=== PATIENT | female | born 1955 | race African-American/Black ===

== ENCOUNTER 2017-02-17 14:17 | Inpatient (IN) | payer OTHER ==
[2017-02-17 15:18] VITALS: BMI 23.4
--- NOTE | 2017-02-17 15:59 | HP ---
CIWA Score - CIWA Score Nausea/Vomitin Muscle Tremors: 3 Anxiety: 3 Agitation: 2 Paroxysmal Sweats: 2 Orientation: 0-Oriented Tacttile Disturbances: 2-Mild Itch/Numbness/Burn Auditory Disturbances: 0-None Visual Disturbances: 0-None Headache: 3-Moderate CIWA-Ar Total Score: 17 Admission ROS BHS - HPI Chief Complaint: I need detox from alcohol Allergies/Adverse Reactions: Allergies Allergy/AdvReac Type Severity Reaction Status Date / Time No Known Allergies Allergy Verified 02/17/17 15:55 History of Present Illness: 61 y/o woman with alcohol dependence presents for detox. Her last treatment was in 1991. Exam Limitations: No Limitations - Ebola screening Have you traveled outside of the country in the last 21 days: No Have you had contact with anyone from an Ebola affected area: No Have you been sick,other than usual withdrawal symptoms: No Do you have a fever: No - Review of Systems Constitutional: Chills, Loss of Appetite, Changes in sleep EENT: reports: Blurred Vision Respiratory: reports: No Symptoms reported GI: reports: Poor Appetite, Abdominal cramping : reports: No Symptoms Reported Musculoskeletal: reports: Muscle Pain, Muscle Weakness Integumentary: reports: No Symptoms Reported Neuro: reports: Headache, Tremors Endocrine: reports: No Symptoms Reported Hematology: reports: No Symptoms Reported Psychiatric: reports: Anxious Other Systems: Reviewed and Negative Patient History - Patient Medical History Hx Anemia: No Hx Asthma: No Hx Chronic Obstructive Pulmonary Disease (COPD): No Hx Cancer: No Hx Cardiac Disorders: No Hx Congestive Heart Failure: No Hx Hypertension: No Hx Hypercholesterolemia: No Hx Pacemaker: No HX Cerebrovascular Accident: No Hx Seizures: No Hx Dementia: No Hx Diabetes: No Hx Gastrointestinal Disorders: No Hx Liver Disease: No Hx Genitourinary Disorders: No Hx Sexually Transmitted Disorders: No Hx Renal Disease (ESRD): No Hx Thyroid Disease: No Hx Human Immunodeficiency Virus (HIV): No Hx Hepatitis C: No Hx Depression: No Hx Suicide Attempt: No Hx Bipolar Disorder: No Hx Schizophrenia: No - Patient Surgical History Past Surgical History: Yes Hx Neurologic Surgery: No Hx Cataract Extraction: No Hx Cardiac Surgery: No Hx Lung Surgery: No Hx Breast Biopsy: No Hx Abdominal Surgery: No Hx Appendectomy: No Hx Genitourinary Surgery: No Hx Section: No Hx Orthopedic Surgery: No Hx Hysterectomy: No Other Surgical History: Removal of polyp in 2015 Anesthesia Reaction: No - PPD History Previous Implant?: Yes Documented Results: Positive w/o proof Implanted On Prior [facility] Admission?: No PPD to be Administered?: No - Reproductive History Patient is a Female of Child Bearing Age (11 -55 yrs old): Yes LMP comment: NA - Smoking Cessation Smoking history: Former smoker Have you smoked in the past 12 months: No Hx Chewing Tobacco Use: No Initiated information on smoking cessation: No - Substance & Tx. History Hx Alcohol Use: Yes Hx Substance Use: Yes Substance Use Type: Alcohol, Cocaine, Marijuana Hx Substance Use Treatment: Yes - Substances Abused Alcohol Route: Oral Frequency: Daily Amount used: vodka-1 pint 40oz beer Age of first use: 14 Date of Last Use: 02/17/17 Cocaine Route: Inhalation Frequency: 3-6 times per week Amount used: $50 Age of first use: 20 Date of Last Use: 02/17/17 Marijuana/Hashish Route: Smoking Frequency: Daily Amount used: 2 bags Age of first use: 17 Date of Last Use: 02/17/17 Family Disease History - Family Disease History Family Disease History: CA: Mother (lung) Admission Physical Exam BHS - Vital Signs Vital Signs: Vital Signs - 24 hr 02/17/17 15:16 Temperature 96.7 F L Pulse Rate 72 Respiratory 20 Rate Blood Pressure 131/81 - Physical General Appearance: Yes: No Apparent Distress, Appropriately Dressed HEENTM: Yes: Hearing grossly Normal, Normal ENT Inspection, Normocephalic, Pharynx Normal, Tm's normal Respiratory: Yes: Chest Non-Tender, Lungs Clear, Normal Breath Sounds, No Respiratory Distress, No Accessory Muscle Use Breast: Yes: Breast Exam Deferred Cardiology: Yes: Regular Rhythm, Regular Rate Abdominal: Yes: Normal Bowel Sounds, Non Tender, Soft Back: Yes: Normal Inspection Musculoskeletal: Yes: full range of Motion, Gait Steady Extremities: Yes: Normal Capillary Refill, Normal Inspection, Normal Range of Motion, Non-Tender Neurological: Yes: wildlife removal specialist II-XII NML intact, Fully Oriented, Alert, Normal Mood/ Affect, Normal Response Integumentary: Yes: Normal Color, Warm Lymphatic: Yes: Within Normal Limits - Diagnostic (1) Alcohol dependence with uncomplicated withdrawal Current Visit: Yes Status: Acute (2) Cocaine abuse Current Visit: Yes Status: Acute (3) Marijuana dependence Current Visit: Yes Status: Acute Cleared for Admission [facility] - Detox or Rehab [facility] Level of Care: Medically Managed Detox Regimen/Protocol: Librium [facility] Breath Alcohol Content Breath Alcohol Content: 0 Urine Pregancy Test - Result Urine Test Results: Negative- NO Line Present Urine Drug Screen - Results Drug Screen Negative: No Urine Drug Screen Results: THC-Marijuana, DUTCH-Cocaine
[2017-02-17] MEDS ORDERED: guaiFENesin/D-METHORPHAN HB 10 ML UNIT-DOSE CUPS PO PRN (16:10)
[2017-02-17] MEDS ORDERED: ACETAMINOPHEN 325 MG TABLET (FP) PO PRN (16:10)
[2017-02-17] MEDS ORDERED: MENTHOL/PHENOL 1 EACH UD MM PRN (16:10)
[2017-02-17] MEDS ORDERED: LOPERAMIDE HCL 2 MG CAPSULE PO PRN (16:10)
[2017-02-17] MEDS ORDERED: P-EPHED 60MG/TRIPROLIDI 2.5MG TABLET PO PRN (16:10)
[2017-02-17] MEDS ORDERED: chlordiazePOXIDE HCL 25 MG CAPSULE PO PRN (16:10)
[2017-02-17] MEDS ORDERED: diphenhydrAMINE HCL 50 MG CAPSULE PO PRN (16:10)
[2017-02-17] MEDS ORDERED: IBUPROFEN 400 MG TABLET (FP) PO PRN (16:10)
[2017-02-17] MEDS ORDERED: hydrOXYzine PAMOATE 50 MG CAPSULE (FP) PO PRN (16:10)
[2017-02-17] MEDS ORDERED: chlordiazePOXIDE HCL 25 MG CAPSULE PO ONE (16:10)
[2017-02-17] MEDS ORDERED: MAGNESIUM CITRATE 300 ML BOTTLE PO PRN (16:10)
[2017-02-17] MEDS ORDERED: MAG HYDROX/AL HYDROX/SIMETH 30 ML UNIT-DOSE CUP PO PRN (16:10)
[2017-02-17] MEDS ORDERED: MAGNESIUM HYDROX 2400MG/30ML ORAL SUSPENSION 30 ML CUP PO PRN (16:10)
[2017-02-17] MEDS: chlordiazePOXIDE HCL 25 MG CAPSULE PO SCH ×2 (18:41→22:42)
[2017-02-17] MEDS: THIAMINE HCL 100 MG TABLET (FP) PO SCH (22:42)
[2017-02-18 00:27] LABS: URINE APPEARANCE CLEAR; URINE BILIRUBIN NEGATIVE (NEGATIVE); URINE BLOOD 2+ (NEGATIVE); URINE COLOR YELLOW; URINE GLUCOSE (UA) NEGATIVE (NEGATIVE); URINE KETONE NEGATIVE (NEGATIVE); URINE LEUK ESTERASE NEGATIVE (NEGATIVE); URINE NITRITE NEGATIVE (NEGATIVE); URINE PROTEIN NEGATIVE (NEGATIVE)
[2017-02-18 00:40] LABS: URINE BACTERIA RARE /hpf (NONE SEEN); URINE MUCUS RARE; URINE RBC 43 /hpf (0-3); URINE WBC 3 /hpf (3-5)
[2017-02-18] MEDS: chlordiazePOXIDE HCL 25 MG CAPSULE PO SCH ×4 (06:16→22:23)
[2017-02-18 09:53] LABS: MCH 32.5 pg (25.7-33.7); MCHC 33.2 g/dl (32.0-36.0); MEAN PLT VOLUME 9.9 fl (7.5-11.1); PLATELET COUNT 185 K/MM3 (134-434); RDW 12.8 % (11.6-15.6); WHITE BLOOD COUNT 5.8 K/mm3 (4.0-10.0)
--- NOTE | 2017-02-18 09:55 | EKG ---
Test Reason : Blood Pressure : / mmHG Vent. Rate : 057 BPM Atrial Rate : 057 BPM P-R Int : 180 ms QRS Dur : 068 ms QT Int : 430 ms P-R-T Axes : 062 -09 037 degrees QTc Int : 418 ms SINUS BRADYCARDIA POSSIBLE INFERIOR INFARCT , AGE UNDETERMINED ABNORMAL ECG NO PREVIOUS ECGS AVAILABLE Confirmed by MD DONAL, AYAZ ([id number]) on 02/18/2017 9:54:44 AM Referred By: Confirmed By:AYAZ MANSFIELD MD
[2017-02-18 10:23] LABS: ALBUMIN 3.8 g/dl (3.4-5.0); ALK PHOS 86 U/L (45-117); ANION GAP 6 (8-16); BILIRUBIN,TOTAL 0.5 mg/dL (0.2-1.0); CALCIUM 9.1 mg/dL (8.5-10.1); CO2 30 mmol/L (21-32); CREATININE 0.8 mg/dL (0.55-1.02); GLUCOSE,RANDOM 76 mg/dL (74-106); SGOT/AST 15 U/L (15-37); SGPT/ALT 19 U/L (12-78); TOT PROT 7.8 g/dl (6.4-8.2)
[2017-02-18] MEDS: PRENATAL VITAMINS W/ FOLIC ACID TABLET (FP) PO SCH (10:24)
--- NOTE | 2017-02-18 18:29 | PN ---
[facility] CIWA - CIWA Score Nausea/Vomitin-No Nausea/No Vomiting Muscle Tremors: 3 Anxiety: 4-Mod. Anxious/Guarded Agitation: 3 Paroxysmal Sweats: 3 Orientation: 0-Oriented Tacttile Disturbances: 0-None Auditory Disturbances: 0-None Visual Disturbances: 0-None Headache: 0-None Present CIWA-Ar Total Score: 13 S Progress Note (SOAP) Subjective: Sweating,anxiety,tremors,interrupted sleep,restless. Objective: 02/18/17 18:28 Vital Signs - 8 hr 02/18/17 02/18/17 14:33 17:34 Temperature 98.2 F 98.1 F Pulse Rate 78 79 Respiratory 18 16 Rate Blood Pressure 113/73 108/56 Laboratory Last Values WBC 5.8 K/mm3 (4.0-10.0) 02/18/17 07:50 RBC 4.54 M/mm3 (3.60-5.2) 02/18/17 07:50 Hgb 14.8 GM/dL (10.7-15.3) 02/18/17 07:50 Hct 44.5 % (32.4-45.2) 02/18/17 07:50 MCV 98.0 fl (80-96) H 02/18/17 07:50 MCH 32.5 pg (25.7-33.7) 02/18/17 07:50 MCHC 33.2 g/dl (32.0-36.0) 02/18/17 07:50 RDW 12.8 % (11.6-15.6) 02/18/17 07:50 Plt Count 185 K/MM3 (134-434) 02/18/17 07:50 MPV 9.9 fl (7.5-11.1) 02/18/17 07:50 Sodium 140 mmol/L (136-145) 02/18/17 07:50 Potassium 3.8 mmol/L (3.5-5.1) 02/18/17 07:50 Chloride 104 mmol/L (98-107) 02/18/17 07:50 Carbon Dioxide 30 mmol/L (21-32) 02/18/17 07:50 Anion Gap 6 (8-16) L 02/18/17 07:50 BUN 15 mg/dL (7-18) 02/18/17 07:50 Creatinine 0.8 mg/dL (0.55-1.02) 02/18/17 07:50 Creat Clearance w eGFR > 60 (>60) 02/18/17 07:50 Random Glucose 76 mg/dL (74-106) 02/18/17 07:50 Calcium 9.1 mg/dL (8.5-10.1) 02/18/17 07:50 Total Bilirubin 0.5 mg/dL (0.2-1.0) 02/18/17 07:50 AST 15 U/L (15-37) 02/18/17 07:50 ALT 19 U/L (12-78) 02/18/17 07:50 Alkaline Phosphatase 86 U/L (45-117) 02/18/17 07:50 Total Protein 7.8 g/dl (6.4-8.2) 02/18/17 07:50 Albumin 3.8 g/dl (3.4-5.0) 02/18/17 07:50 Urine Color Yellow 02/17/17 21:26 Urine Appearance Clear 02/17/17 21:26 Urine pH 6.0 (5.0-8.0) 02/17/17 21:26 Ur Specific [place] 1.020 (1.005-1.025) 02/17/17 21:26 Urine Protein Negative (NEGATIVE) 02/17/17 21:26 Urine Glucose (UA) Negative (NEGATIVE) 02/17/17 21:26 Urine Ketones Negative (NEGATIVE) 02/17/17 21:26 Urine Blood 2+ (NEGATIVE) H 02/17/17 21:26 Urine Nitrite Negative (NEGATIVE) 02/17/17 21:26 Urine Bilirubin Negative (NEGATIVE) 02/17/17 21:26 Urine Urobilinogen 2.0 mg/dL (0.2-1.0) H 02/17/17 21:26 Ur Leukocyte Esterase Negative (NEGATIVE) 02/17/17 21:26 Urine RBC 43 /hpf (0-3) 02/17/17 21:26 Urine WBC 3 /hpf (3-5) 02/17/17 21:26 Ur Epithelial Cells Rare /hpf (FEW) 02/17/17 21:26 Urine Bacteria Rare /hpf (NONE SEEN) 02/17/17 21:26 Urine Mucus Rare 02/17/17 21:26 RPR Titer Nonreactive (NONREACTIVE) 02/18/17 07:50 labs noted Assessment: 02/18/17 18:28 Withdrawal sx. Plan: Continue detox
[2017-02-18] MEDS: THIAMINE HCL 100 MG TABLET (FP) PO SCH (22:23)
[2017-02-19] MEDS: chlordiazePOXIDE HCL 25 MG CAPSULE PO SCH ×2 (06:05→10:28)
[2017-02-19 10:18] LABS: URINE APPEARANCE CLEAR; URINE BILIRUBIN NEGATIVE (NEGATIVE); URINE BLOOD 2+ (NEGATIVE); URINE COLOR LTYELLOW; URINE GLUCOSE (UA) NEGATIVE (NEGATIVE); URINE KETONE NEGATIVE (NEGATIVE); URINE LEUK ESTERASE TRACE (NEGATIVE); URINE NITRITE NEGATIVE (NEGATIVE); URINE PROTEIN NEGATIVE (NEGATIVE); URINE UROBILINOGEN NEGATIVE mg/dL (0.2-1.0)
[2017-02-19] MEDS: PRENATAL VITAMINS W/ FOLIC ACID TABLET (FP) PO SCH (10:28)
[2017-02-19 10:29] LABS: URINE MUCUS RARE; URINE RBC 5 /hpf (0-3); URINE WBC 4 /hpf (3-5)
--- NOTE | 2017-02-19 11:16 | PN ---
[facility] CIWA - CIWA Score Nausea/Vomitin-No Nausea/No Vomiting Muscle Tremors: 3 Anxiety: 4-Mod. Anxious/Guarded Agitation: 4-Moderately Restless Paroxysmal Sweats: 3 Orientation: 0-Oriented Tacttile Disturbances: 0-None Auditory Disturbances: 0-None Visual Disturbances: 0-None Headache: 0-None Present CIWA-Ar Total Score: 14 BHS Progress Note (SOAP) Subjective: Anxiety,tremors,sweating,interrupted sleep,restless Objective: 02/19/17 11:12 Vital Signs - 8 hr 02/19/17 02/19/17 06:00 09:43 Temperature 98.1 F 99.5 F Pulse Rate 70 83 Respiratory 16 18 Rate Blood Pressure 111/58 118/88 Laboratory Last Values WBC 5.8 K/mm3 (4.0-10.0) 02/18/17 07:50 RBC 4.54 M/mm3 (3.60-5.2) 02/18/17 07:50 Hgb 14.8 GM/dL (10.7-15.3) 02/18/17 07:50 Hct 44.5 % (32.4-45.2) 02/18/17 07:50 MCV 98.0 fl (80-96) H 02/18/17 07:50 MCH 32.5 pg (25.7-33.7) 02/18/17 07:50 MCHC 33.2 g/dl (32.0-36.0) 02/18/17 07:50 RDW 12.8 % (11.6-15.6) 02/18/17 07:50 Plt Count 185 K/MM3 (134-434) 02/18/17 07:50 MPV 9.9 fl (7.5-11.1) 02/18/17 07:50 Sodium 140 mmol/L (136-145) 02/18/17 07:50 Potassium 3.8 mmol/L (3.5-5.1) 02/18/17 07:50 Chloride 104 mmol/L (98-107) 02/18/17 07:50 Carbon Dioxide 30 mmol/L (21-32) 02/18/17 07:50 Anion Gap 6 (8-16) L 02/18/17 07:50 BUN 15 mg/dL (7-18) 02/18/17 07:50 Creatinine 0.8 mg/dL (0.55-1.02) 02/18/17 07:50 Creat Clearance w eGFR > 60 (>60) 02/18/17 07:50 Random Glucose 76 mg/dL (74-106) 02/18/17 07:50 Calcium 9.1 mg/dL (8.5-10.1) 02/18/17 07:50 Total Bilirubin 0.5 mg/dL (0.2-1.0) 02/18/17 07:50 AST 15 U/L (15-37) 02/18/17 07:50 ALT 19 U/L (12-78) 02/18/17 07:50 Alkaline Phosphatase 86 U/L (45-117) 02/18/17 07:50 Total Protein 7.8 g/dl (6.4-8.2) 02/18/17 07:50 Albumin 3.8 g/dl (3.4-5.0) 02/18/17 07:50 Urine Color Ltyellow 02/19/17 08:00 Urine Appearance Clear 02/19/17 08:00 Urine pH 6.0 (5.0-8.0) 02/19/17 08:00 Ur Specific [place] 1.020 (1.005-1.025) 02/17/17 21:26 Urine Protein Negative (NEGATIVE) 02/19/17 08:00 Urine Glucose (UA) Negative (NEGATIVE) 02/19/17 08:00 Urine Ketones Negative (NEGATIVE) 02/19/17 08:00 Urine Blood 2+ (NEGATIVE) H 02/19/17 08:00 Urine Nitrite Negative (NEGATIVE) 02/19/17 08:00 Urine Bilirubin Negative (NEGATIVE) 02/19/17 08:00 Urine Urobilinogen Negative mg/dL (0.2-1.0) 02/19/17 08:00 Ur Leukocyte Esterase Trace (NEGATIVE) 02/19/17 08:00 Urine RBC 5 /hpf (0-3) 02/19/17 08:00 Urine WBC 4 /hpf (3-5) 02/19/17 08:00 Ur Epithelial Cells Rare /hpf (FEW) 02/19/17 08:00 Urine Bacteria Rare /hpf (NONE SEEN) 02/17/17 21:26 Urine Mucus Rare 02/19/17 08:00 RPR Titer Nonreactive (NONREACTIVE) 02/18/17 07:50 labs noted Assessment: 02/19/17 11:16 Withdrawal sx Plan: Continue detox
[2017-02-19] MEDS: chlordiazePOXIDE 5 MG CAPSULE PO SCH ×2 (17:49→22:27)
[2017-02-19] MEDS: THIAMINE HCL 100 MG TABLET (FP) PO SCH (22:27)
[2017-02-20] MEDS: chlordiazePOXIDE 5 MG CAPSULE PO SCH ×2 (05:20→10:25)
--- NOTE | 2017-02-20 09:04 | PN ---
BHS Progress Note (SOAP) Subjective: nausea, sweats, interrutped sleep, anxiety, tremors, PPD+, cxr performed Objective: 02/20/17 09:04 Vital Signs - 8 hr 02/20/17 02/20/17 03:30 06:37 Temperature 97.7 F Pulse Rate 70 Respiratory 18 16 Rate Blood Pressure 107/68 Laboratory Tests 02/17/17 02/18/17 02/18/17 21:26 07:50 07:50 WBC 5.8 RBC 4.54 Hgb 14.8 Hct 44.5 MCV 98.0 H MCH 32.5 MCHC 33.2 RDW 12.8 Plt Count 185 MPV 9.9 Sodium 140 Potassium 3.8 Chloride 104 Carbon Dioxide 30 Anion Gap 6 L BUN 15 Creatinine 0.8 Creat Clearance w eGFR > 60 Random Glucose 76 Calcium 9.1 Total Bilirubin 0.5 AST 15 ALT 19 Alkaline Phosphatase 86 Total Protein 7.8 Albumin 3.8 Urine Color Yellow Urine Appearance Clear Urine pH 6.0 Ur Specific [place] 1.020 Urine Protein Negative Urine Glucose (UA) Negative Urine Ketones Negative Urine Blood 2+ H Urine Nitrite Negative Urine Bilirubin Negative Urine Urobilinogen 2.0 H Ur Leukocyte Esterase Negative Urine RBC 43 Urine WBC 3 Ur Epithelial Cells Rare Urine Bacteria Rare Urine Mucus Rare RPR Titer 02/18/17 02/19/17 07:50 08:00 WBC RBC Hgb Hct MCV MCH MCHC RDW Plt Count MPV Sodium Potassium Chloride Carbon Dioxide Anion Gap BUN Creatinine Creat Clearance w eGFR Random Glucose Calcium Total Bilirubin AST ALT Alkaline Phosphatase Total Protein Albumin Urine Color Ltyellow Urine Appearance Clear Urine pH 6.0 Ur Specific [place] 1.015 Urine Protein Negative Urine Glucose (UA) Negative Urine Ketones Negative Urine Blood 2+ H Urine Nitrite Negative Urine Bilirubin Negative Urine Urobilinogen Negative Ur Leukocyte Esterase Trace Urine RBC 5 Urine WBC 4 Ur Epithelial Cells Rare Urine Bacteria Urine Mucus Rare RPR Titer Nonreactive Assessment: 02/20/17 09:04 withdrawal sx, cxr done - result pending Plan: cont detox, check cxr
[2017-02-20] MEDS: PRENATAL VITAMINS W/ FOLIC ACID TABLET (FP) PO SCH (10:25)
[2017-02-20] MEDS: chlordiazePOXIDE HCL 10 MG CAPSULE PO SCH ×2 (17:55→22:20)
[2017-02-20] MEDS: THIAMINE HCL 100 MG TABLET (FP) PO SCH (22:20)
[2017-02-21] MEDS: chlordiazePOXIDE HCL 10 MG CAPSULE PO SCH (05:15)
[2017-02-21 06:25] VITALS: TEMP 97.7
--- NOTE | 2017-02-21 08:49 | DS ---
[facility] Detox Discharge Summary Admission Date: 02/17/17 Discharge Date: 02/21/17 - History Present History: Alcohol Dependence, Cannabis Dependence, Cocaine Dependence Pertinent Past History: insomnia,depression, anxiety, nicotine dependence - Physical Exam Results Vital Signs: Vital Signs Temperature 97.7 F 02/21/17 06:24 Pulse Rate 69 02/21/17 06:24 Respiratory Rate 18 02/21/17 06:24 Blood Pressure 113/71 02/21/17 06:24 O2 Sat by Pulse Oximetry (%) Pertinent Admission Physical Exam Findings: withdrawal sx - Treatment Hospital Course: Detox Protocol Followed, Detoxed Safely, Responded well, Discharged Condition Good, Rehab Referral Accepted Patient has Accepted a Rehab Referral to: Yes - Medication Discharge Medications: Ambulatory Orders NK [No Known Home Medication] 02/17/17 - Diagnosis (1) Alcohol dependence with uncomplicated withdrawal Current Visit: Yes Status: Acute (2) Cocaine abuse Current Visit: Yes Status: Acute (3) Marijuana dependence Current Visit: Yes Status: Acute - AMA Did Patient Leave Against Medical Advice: No
[2017-02-21 11:43] VITALS: BP 124/80; PULSE 80
== END 2017-02-21 09:24 | disposition home or self-care (01) | DRG 774 ==
LOC: YASAS 14:17 → Y6N 17:18
PROVIDERS: ADMIT Internal Medicine Addiction Medicine; ATTEND Internal Medicine Addiction Medicine
PROC: HZ2ZZZZ Detoxification Services for Substance Abuse Treatment (ICD-10-PCS; principal; 2017-02-17)
DX: F10.230 Alcohol dependence with withdrawal, uncomplicated (principal); F14.10 Cocaine abuse, uncomplicated; F12.20 Cannabis dependence, uncomplicated
CPT/HCPCS: 36415; 71020-TC; 80053; 81003; 81015; 85027; 86593; 93005; 93010

== ENCOUNTER 2018-07-29 13:15 | Inpatient (IN) | payer OTHER ==
[2018-07-29 13:55] VITALS: BMI 26.8
--- NOTE | 2018-07-29 14:17 | HP ---
CIWA Score Nausea/Vomitin-No Nausea/No Vomiting Muscle Tremors: 2 Anxiety: 3 Agitation: 3 Paroxysmal Sweats: 2 Orientation: 1-Uncertain about Date Tacttile Disturbances: 1-Very Mild Itch/Numbness Auditory Disturbances: 0-None Visual Disturbances: 0-None Headache: 0-None Present CIWA-Ar Total Score: 12 - Admission Criteria [facility] Guidelines: Admission for Medically Managed Detox: Requires at least one of the followin. CIWA greater than 12 2. Seizures within the past 24 hours 3. Delirium tremens within the past 24 hours 4. Hallucinations within the past 24 hours 5. Acute intervention needed for co occurring medical disorder 6. Acute intervention needed for co occurring psychiatric disorder 7. Severe withdrawal that cannot be handled at a lower level of care (continued vomiting, continued diarrhea, abnormal vital signs) requiring intravenous medication and/or fluids 8. Patient presents the following: CIWA greater than 12 Admission Criteria Met: Admission criteria met Admission ROS BHS - HPI Chief Complaint: " I am tire of getting high I want to get help" Allergies/Adverse Reactions: Allergies Allergy/AdvReac Type Severity Reaction Status Date / Time No Known Allergies Allergy Verified 02/17/17 15:55 History of Present Illness: 62 yo female with hx of Alcohol, marijuana, crack cocaine dependence is here seeking detox d/t withdrawal sx , self referred. PMHX: chronic rhinitis, GERD. Denies any psychiatric problems. Denies hx of seizures, reports remote hx of ETOH black outs with last episode about a year ago. Longest period of sobriety three years. Denies any legal problems at this time. - Ebola screening Have you been sick,other than usual withdrawal symptoms: No - Review of Systems Constitutional: Night Sweats, Other (fatigue) EENT: reports: Nose Congestion, Other (wears glasses) Respiratory: reports: No Symptoms reported Cardiac: reports: No Symptoms Reported GI: reports: Diarrhea, Poor Fluid Intake : reports: No Symptoms Reported Musculoskeletal: reports: Joint Pain Integumentary: reports: No Symptoms Reported Neuro: reports: See HPI Endocrine: reports: Increased Thirst Hematology: reports: No Symptoms Reported Psychiatric: reports: Orientated x3, Agitated Other Systems: Reviewed and Negative Patient History - Patient Medical History Hx Anemia: No Hx Asthma: No Hx Chronic Obstructive Pulmonary Disease (COPD): No Hx Cancer: No Hx Cardiac Disorders: No Hx Congestive Heart Failure: No Hx Hypertension: No Hx Hypercholesterolemia: No Hx Pacemaker: No HX Cerebrovascular Accident: No Hx Seizures: No Hx Dementia: No Hx Diabetes: No Hx Gastrointestinal Disorders: Yes (GERD ) Hx Liver Disease: No Hx Genitourinary Disorders: No Hx Sexually Transmitted Disorders: Yes (hx og gonorrhea ) Hx Renal Disease (ESRD): No Hx Thyroid Disease: No Hx Human Immunodeficiency Virus (HIV): No Hx Hepatitis C: No Hx Depression: No Hx Suicide Attempt: No Hx Bipolar Disorder: No Hx Schizophrenia: No - Patient Surgical History Past Surgical History: Yes Hx Neurologic Surgery: No Hx Cataract Extraction: No Hx Cardiac Surgery: No Hx Lung Surgery: No Hx Breast Biopsy: No Hx Abdominal Surgery: No Hx Appendectomy: No Hx Genitourinary Surgery: No Hx Section: No Hx Orthopedic Surgery: No Hx Hysterectomy: No Other Surgical History: Removal of polyp in 2014 Anesthesia Reaction: No - PPD History Previous Implant?: No Documented Results: Negative w/proof PPD to be Administered?: No - Smoking Cessation Smoking history: Former smoker Have you smoked in the past 12 months: No Hx Chewing Tobacco Use: No Initiated information on smoking cessation: No - Substance & Tx. History Hx Alcohol Use: Yes Hx Substance Use: Yes Substance Use Type: Alcohol, Cocaine, Marijuana Hx Substance Use Treatment: Yes (Last drtox [facility] February 2017) - Substances Abused alcohol Route: Oral Frequency: 3-6 times per week Amount used: 1/2 - 1 pint Age of first use: 14 Date of Last Use: 07/29/18 crack Route: Smoking Frequency: Daily Amount used: $70 Age of first use: 31 Date of Last Use: 07/29/18 marijuana Route: Smoking Frequency: Daily Amount used: $20 Age of first use: 17 Date of Last Use: 07/29/18 Family Disease History - Family Disease History Family Disease History: CA: Mother (lung) Admission Physical Exam S - Vital Signs Vital Signs: Vital Signs - 24 hr 07/29/18 13:51 Temperature 96.8 F L Pulse Rate 72 Respiratory 20 Rate Blood Pressure 145/81 - Physical General Appearance: Yes: Appropriately Dressed, Sweating, Anxious HEENTM: Yes: Within Normal Limits, EOMI, Normal ENT Inspection, Pharynx Normal, Other (wears glasses) Respiratory: Yes: Chest Non-Tender, Lungs Clear, Normal Breath Sounds, No Respiratory Distress, No Accessory Muscle Use Neck: Yes: Within Normal Limits Breast: Yes: Breast Exam Deferred Cardiology: Yes: Regular Rhythm, Regular Rate Abdominal: Yes: Normal Bowel Sounds, Non Tender, Flat, Soft Genitourinary: Yes: Within Normal Limits Back: Yes: Within Normal Limits Musculoskeletal: Yes: full range of Motion, Gait Steady, Pelvis Stable Extremities: Yes: Normal Capillary Refill, Normal Inspection, Normal Range of Motion Neurological: Yes: human resources designate II-XII NML intact, Fully Oriented, Alert, Motor Strength 5/5, Depressed Affect Integumentary: Yes: Normal Color, Dry, Warm Lymphatic: Yes: Within Normal Limits - Diagnostic (1) Cocaine dependence Current Visit: Yes Status: Acute Qualifiers: Substance use status: uncomplicated Qualified Code(s): F14.20 - Cocaine dependence, uncomplicated (2) GERD (gastroesophageal reflux disease) Current Visit: Yes Status: Chronic Qualifiers: Esophagitis presence: without esophagitis Qualified Code(s): K21.9 - Gastro -esophageal reflux disease without esophagitis (3) Alcohol dependence with uncomplicated withdrawal Current Visit: Yes Status: Acute (4) Marijuana dependence Current Visit: Yes Status: Acute Cleared for Admission [facility] - Detox or Rehab [facility] Level of Care: Medically Managed Detox Regimen/Protocol: Librium S Breath Alcohol Content Breath Alcohol Content: 0.006 Urine Pregancy Test - Result Urine Test Results: Negative- NO Line Present Urine Drug Screen - Results Drug Screen Negative: No Urine Drug Screen Results: THC-Marijuana, DUTCH-Cocaine Inpatient Rehab Admission - Rehab Decision to Admit Inpatient rehab admission?: No
[2018-07-29] MEDS ORDERED: MAG HYDROX/AL HYDROX/SIMETH 30 ML UNIT-DOSE CUP PO PRN (14:23)
[2018-07-29] MEDS ORDERED: IBUPROFEN 400 MG TABLET (FP) PO PRN (14:23)
[2018-07-29] MEDS ORDERED: guaiFENesin/D-METHORPHAN HB 10 ML UNIT-DOSE CUPS PO PRN (14:23)
[2018-07-29] MEDS ORDERED: hydrOXYzine PAMOATE 25 MG CAPSULE (FP) PO PRN (14:23)
[2018-07-29] MEDS ORDERED: LOPERAMIDE HCL 2 MG CAPSULE PO PRN (14:23)
[2018-07-29] MEDS ORDERED: MAGNESIUM CITRATE 300 ML BOTTLE PO PRN (14:23)
[2018-07-29] MEDS ORDERED: P-EPHED 60MG/TRIPROLIDI 2.5MG TABLET PO PRN (14:23)
[2018-07-29] MEDS ORDERED: ACETAMINOPHEN 325 MG TABLET (FP) PO PRN (14:23)
[2018-07-29] MEDS ORDERED: MAGNESIUM HYDROX 2400MG/30ML ORAL SUSPENSION 30 ML CUP PO PRN (14:23)
[2018-07-29] MEDS ORDERED: MENTHOL/PHENOL 1 EACH UD MM PRN (14:23)
[2018-07-29] MEDS ORDERED: chlordiazePOXIDE HCL 25 MG CAPSULE PO PRN (14:23)
[2018-07-29] MEDS: chlordiazePOXIDE HCL 25 MG CAPSULE PO SCH (22:17)
[2018-07-29] MEDS: THIAMINE HCL 100 MG TABLET (FP) PO SCH (22:17)
[2018-07-29 23:29] LABS: URINE APPEARANCE CLEAR; URINE BILIRUBIN NEGATIVE (<2.0 mg/dL); URINE COLOR YELLOW; URINE GLUCOSE (UA) NEGATIVE (NEGATIVE); URINE KETONE NEGATIVE (NEGATIVE); URINE LEUK ESTERASE NEGATIVE (NEGATIVE); URINE NITRITE NEGATIVE (NEGATIVE); URINE PROTEIN NEGATIVE (NEGATIVE); URINE UROBILINOGEN NEGATIVE mg/dL (0.2-1.0)
[2018-07-29 23:43] LABS: CALCIUM OXALATE CRYSTALS RARE /hpf (NONE SEEN); EPI CELLS RARE /HPF (FEW); URINE BACTERIA RARE /hpf (NONE SEEN); URINE MUCUS RARE
[2018-07-30] MEDS: chlordiazePOXIDE HCL 25 MG CAPSULE PO SCH ×4 (05:50→22:08)
[2018-07-30] MEDS: PRENATAL VITAMINS W/ FOLIC ACID TABLET (FP) PO SCH (10:21)
--- NOTE | 2018-07-30 11:04 | EKG ---
Test Reason : Blood Pressure : / mmHG Vent. Rate : 062 BPM Atrial Rate : 062 BPM P-R Int : 170 ms QRS Dur : 062 ms QT Int : 418 ms P-R-T Axes : 069 -08 039 degrees QTc Int : 424 ms NORMAL SINUS RHYTHM NORMAL ECG WHEN COMPARED WITH ECG OF 17-FEB-2017 17:46, NO SIGNIFICANT CHANGE WAS FOUND Confirmed by MD FELIX, PAVEL ([id number]) on 07/30/2018 11:04:33 AM Referred By: Navneet Farrell Confirmed By:PAVEL WASHINGTON MD
[2018-07-30 11:25] LABS: ALBUMIN 3.4 g/dl (3.4-5.0); ALK PHOS 81 U/L (45-117); ANION GAP 5 MMOL/L (8-16); BILIRUBIN,TOTAL 0.3 mg/dL (0.2-1); BLOOD UREA NITROGEN 14 mg/dL (7-18); CALCIUM 8.4 mg/dL (8.5-10.1); CHLORIDE 107 mmol/L (98-107); CO2 29 mmol/L (21-32); CREATININE 0.8 mg/dL (0.55-1.3); GLUCOSE,RANDOM 98 mg/dL (74-106); POTASSIUM 4.1 mmol/L (3.5-5.1); SGOT/AST 14 U/L (15-37); SGPT/ALT 15 U/L (13-61); SODIUM 142 mmol/L (136-145); TOT PROT 6.9 g/dl (6.4-8.2)
[2018-07-30 11:45] LABS: HEMATOCRIT 41.3 % (32.4-45.2); MCH 32.5 pg (25.7-33.7); MCHC 33.8 g/dl (32.0-36.0); MEAN CELL VOLUME 95.9 fl (80-96); MEAN PLT VOLUME 10.2 fl (7.5-11.1); PLATELET COUNT 179 K/MM3 (134-434); RBC 4.31 M/mm3 (3.60-5.2); RDW 13.4 % (11.6-15.6); WHITE BLOOD COUNT 5.3 K/mm3 (4.0-10.0)
--- NOTE | 2018-07-30 13:53 | PN ---
S CIWA - CIWA Score Nausea/Vomitin-Mild Nausea/No Vomiting Muscle Tremors: 3 Anxiety: 3 Agitation: 2 Paroxysmal Sweats: 1-Minimal Palms Moist Orientation: 1-Uncertain about Date Tacttile Disturbances: 0-None Auditory Disturbances: 0-None Visual Disturbances: 0-None Headache: 1-Very Mild CIWA-Ar Total Score: 12 BHS Progress Note (SOAP) Subjective: patient reported that she wears contact lens x 15 years understands the risks of contact lens that she wearing contact lens as well as eye glasses together patient stated that she has itchy eyes and tearing expressed extremely uncomfortable lower eyelid mild edematous lateral canthus erythema tearing encourage hand washing and avoid irritation to the eyes patient agrees to remove the contact lens till eye drop complete the course tremor sweating trouble sleep at night Objective: 07/30/18 14:01 Vital Signs Temperature 97.1 F L 07/30/18 13:32 Pulse Rate 75 07/30/18 13:32 Respiratory Rate 18 07/30/18 13:32 Blood Pressure 132/79 07/30/18 13:32 O2 Sat by Pulse Oximetry (%) Laboratory Last Values WBC 5.3 K/mm3 (4.0-10.0) 07/30/18 08:00 RBC 4.31 M/mm3 (3.60-5.2) 07/30/18 08:00 Hgb 14.0 GM/dL (10.7-15.3) 07/30/18 08:00 Hct 41.3 % (32.4-45.2) 07/30/18 08:00 MCV 95.9 fl (80-96) 07/30/18 08:00 MCH 32.5 pg (25.7-33.7) 07/30/18 08:00 MCHC 33.8 g/dl (32.0-36.0) 07/30/18 08:00 RDW 13.4 % (11.6-15.6) 07/30/18 08:00 Plt Count 179 K/MM3 (134-434) 07/30/18 08:00 MPV 10.2 fl (7.5-11.1) 07/30/18 08:00 Sodium 142 mmol/L (136-145) 07/30/18 08:00 Potassium 4.1 mmol/L (3.5-5.1) 07/30/18 08:00 Chloride 107 mmol/L (98-107) 07/30/18 08:00 Carbon Dioxide 29 mmol/L (21-32) 07/30/18 08:00 Anion Gap 5 MMOL/L (8-16) L 07/30/18 08:00 BUN 14 mg/dL (7-18) 07/30/18 08:00 Creatinine 0.8 mg/dL (0.55-1.3) 07/30/18 08:00 Creat Clearance w eGFR > 60 (>60) 07/30/18 08:00 Random Glucose 98 mg/dL (74-106) 07/30/18 08:00 Calcium 8.4 mg/dL (8.5-10.1) L 07/30/18 08:00 Total Bilirubin 0.3 mg/dL (0.2-1) 07/30/18 08:00 AST 14 U/L (15-37) L 07/30/18 08:00 ALT 15 U/L (13-61) 07/30/18 08:00 Alkaline Phosphatase 81 U/L (45-117) 07/30/18 08:00 Total Protein 6.9 g/dl (6.4-8.2) 07/30/18 08:00 Albumin 3.4 g/dl (3.4-5.0) 07/30/18 08:00 Urine Color Yellow 07/29/18 22:25 Urine Appearance Clear 07/29/18 22:25 Urine pH 6.0 (5.0-8.0) 07/29/18 22:25 Ur Specific [place] 1.020 (1.010-1.035) 07/29/18 22:25 Urine Protein Negative (NEGATIVE) 07/29/18 22:25 Urine Glucose (UA) Negative (NEGATIVE) 07/29/18 22:25 Urine Ketones Negative (NEGATIVE) 07/29/18 22:25 Urine Blood 2+ (NEGATIVE) H 07/29/18 22:25 Urine Nitrite Negative (NEGATIVE) 07/29/18 22:25 Urine Bilirubin Negative (<2.0 mg/dL) 07/29/18 22:25 Urine Urobilinogen Negative mg/dL (0.2-1.0) 07/29/18 22:25 Ur Leukocyte Esterase Negative (NEGATIVE) 07/29/18 22:25 Urine WBC (Auto) 2 /hpf (3-5) 07/29/18 22:25 Urine RBC (Auto) 14 /hpf (0-3) 07/29/18 22:25 Ur Epithelial Cells Rare /HPF (FEW) 07/29/18 22:25 Calcium Oxalate Crystal Rare /hpf (NONE SEEN) 07/29/18 22:25 Urine Bacteria Rare /hpf (NONE SEEN) 07/29/18 22:25 Urine Mucus Rare 07/29/18 22:25 RPR Titer Nonreactive (NONREACTIVE) 07/30/18 08:00 lab noted Assessment: 07/30/18 14:02 withdrawal sx 07/30/18 14:02 conjuctivitis Plan: continue detox ofloxine eye drops 3% x 7 days
[2018-07-30] MEDS: OFLOXACIN 0.3% OPHTHALMIC SOLUTION 5 ML BOTTLE OU SCH ×3 (16:00→22:07)
[2018-07-30] MEDS: THIAMINE HCL 100 MG TABLET (FP) PO SCH (22:07)
[2018-07-30] MEDS: MELATONIN 5 MG TABLETS PO PRN (22:09)
[2018-07-31] MEDS: chlordiazePOXIDE HCL 25 MG CAPSULE PO SCH ×3 (05:58→17:32)
--- NOTE | 2018-07-31 10:21 | PN ---
S CIWA - CIWA Score Nausea/Vomitin-No Nausea/No Vomiting Muscle Tremors: 2 Anxiety: 1-Mildly Anxious Agitation: 2 Paroxysmal Sweats: 1-Minimal Palms Moist Orientation: 1-Uncertain about Date Tacttile Disturbances: 0-None Auditory Disturbances: 0-None Visual Disturbances: 0-None Headache: 1-Very Mild CIWA-Ar Total Score: 8 BHS Progress Note (SOAP) Subjective: tremor sweating trouble sleep at night anxiousness Objective: 07/31/18 10:20 Vital Signs Temperature 97.8 F 07/31/18 09:13 Pulse Rate 80 07/31/18 09:13 Respiratory Rate 16 07/31/18 09:13 Blood Pressure 132/81 07/31/18 09:13 O2 Sat by Pulse Oximetry (%) Laboratory Last Values WBC 5.3 K/mm3 (4.0-10.0) 07/30/18 08:00 RBC 4.31 M/mm3 (3.60-5.2) 07/30/18 08:00 Hgb 14.0 GM/dL (10.7-15.3) 07/30/18 08:00 Hct 41.3 % (32.4-45.2) 07/30/18 08:00 MCV 95.9 fl (80-96) 07/30/18 08:00 MCH 32.5 pg (25.7-33.7) 07/30/18 08:00 MCHC 33.8 g/dl (32.0-36.0) 07/30/18 08:00 RDW 13.4 % (11.6-15.6) 07/30/18 08:00 Plt Count 179 K/MM3 (134-434) 07/30/18 08:00 MPV 10.2 fl (7.5-11.1) 07/30/18 08:00 Sodium 142 mmol/L (136-145) 07/30/18 08:00 Potassium 4.1 mmol/L (3.5-5.1) 07/30/18 08:00 Chloride 107 mmol/L (98-107) 07/30/18 08:00 Carbon Dioxide 29 mmol/L (21-32) 07/30/18 08:00 Anion Gap 5 MMOL/L (8-16) L 07/30/18 08:00 BUN 14 mg/dL (7-18) 07/30/18 08:00 Creatinine 0.8 mg/dL (0.55-1.3) 07/30/18 08:00 Creat Clearance w eGFR > 60 (>60) 07/30/18 08:00 Random Glucose 98 mg/dL (74-106) 07/30/18 08:00 Calcium 8.4 mg/dL (8.5-10.1) L 07/30/18 08:00 Total Bilirubin 0.3 mg/dL (0.2-1) 07/30/18 08:00 AST 14 U/L (15-37) L 07/30/18 08:00 ALT 15 U/L (13-61) 07/30/18 08:00 Alkaline Phosphatase 81 U/L (45-117) 07/30/18 08:00 Total Protein 6.9 g/dl (6.4-8.2) 07/30/18 08:00 Albumin 3.4 g/dl (3.4-5.0) 07/30/18 08:00 Urine Color Yellow 07/29/18 22:25 Urine Appearance Clear 07/29/18 22:25 Urine pH 6.0 (5.0-8.0) 07/29/18 22:25 Ur Specific [place] 1.020 (1.010-1.035) 07/29/18 22:25 Urine Protein Negative (NEGATIVE) 07/29/18 22:25 Urine Glucose (UA) Negative (NEGATIVE) 07/29/18 22:25 Urine Ketones Negative (NEGATIVE) 07/29/18 22:25 Urine Blood 2+ (NEGATIVE) H 07/29/18 22:25 Urine Nitrite Negative (NEGATIVE) 07/29/18 22:25 Urine Bilirubin Negative (<2.0 mg/dL) 07/29/18 22:25 Urine Urobilinogen Negative mg/dL (0.2-1.0) 07/29/18 22:25 Ur Leukocyte Esterase Negative (NEGATIVE) 07/29/18 22:25 Urine WBC (Auto) 2 /hpf (3-5) 07/29/18 22:25 Urine RBC (Auto) 14 /hpf (0-3) 07/29/18 22:25 Ur Epithelial Cells Rare /HPF (FEW) 07/29/18 22:25 Calcium Oxalate Crystal Rare /hpf (NONE SEEN) 07/29/18 22:25 Urine Bacteria Rare /hpf (NONE SEEN) 07/29/18 22:25 Urine Mucus Rare 07/29/18 22:25 RPR Titer Nonreactive (NONREACTIVE) 07/30/18 08:00 lab noted Assessment: 07/31/18 10:21 withdrawal sx Plan: continue detox
[2018-07-31] MEDS: OFLOXACIN 0.3% OPHTHALMIC SOLUTION 5 ML BOTTLE OU SCH ×4 (10:27→22:18)
[2018-07-31] MEDS: PRENATAL VITAMINS W/ FOLIC ACID TABLET (FP) PO SCH (10:34)
[2018-07-31] MEDS: CLOTRIMAZOLE 1% VAGINAL CREAM WITH APPLICATOR 45 GM TUBE VG SCH (22:17)
[2018-07-31] MEDS: THIAMINE HCL 100 MG TABLET (FP) PO SCH (22:19)
[2018-07-31] MEDS: chlordiazePOXIDE 5 MG CAPSULE PO SCH (22:19)
[2018-08-01] MEDS: chlordiazePOXIDE 5 MG CAPSULE PO SCH ×3 (05:56→17:38)
--- NOTE | 2018-08-01 10:29 | PN ---
[facility] Progress Note Note: patient reported that she was taking motrin 800 mg at home for headache that 400 mg not helping discuss adverse reaction of motrin related gi distress patient agrees 600 mg of motrin reported has heart burn and maalox not helping begin zantac 150 mg bid discuss dietary avoid heart burn
[2018-08-01] MEDS: OFLOXACIN 0.3% OPHTHALMIC SOLUTION 5 ML BOTTLE OU SCH ×4 (10:40→23:00)
[2018-08-01] MEDS: PRENATAL VITAMINS W/ FOLIC ACID TABLET (FP) PO SCH (10:40)
[2018-08-01] MEDS: IBUPROFEN 600 MG TABLET (FP) PO PRN (11:59)
[2018-08-01] MEDS: RANITIDINE HCL 150 MG TABLET (FP) PO SCH ×2 (12:00→22:15)
--- NOTE | 2018-08-01 14:48 | PN ---
S CIWA - CIWA Score Nausea/Vomitin-No Nausea/No Vomiting Muscle Tremors: 2 Anxiety: 1-Mildly Anxious Agitation: 1-Slight > Activity Paroxysmal Sweats: 1-Minimal Palms Moist Orientation: 0-Oriented Tacttile Disturbances: 0-None Auditory Disturbances: 0-None Visual Disturbances: 0-None Headache: 1-Very Mild CIWA-Ar Total Score: 6 BHS Progress Note (SOAP) Subjective: patient has headaches reported taking motrin 800 mg at home for headache due to acid reflux recommend 600 mg motrin prn for headache zantac 150 mg bid feeling better less tremor mild sweating sleep better at night Objective: 08/01/18 14:47 Vital Signs Temperature 96.6 F L 08/01/18 13:53 Pulse Rate 86 08/01/18 13:53 Respiratory Rate 18 08/01/18 13:53 Blood Pressure 123/88 08/01/18 13:53 O2 Sat by Pulse Oximetry (%) Laboratory Last Values WBC 5.3 K/mm3 (4.0-10.0) 07/30/18 08:00 RBC 4.31 M/mm3 (3.60-5.2) 07/30/18 08:00 Hgb 14.0 GM/dL (10.7-15.3) 07/30/18 08:00 Hct 41.3 % (32.4-45.2) 07/30/18 08:00 MCV 95.9 fl (80-96) 07/30/18 08:00 MCH 32.5 pg (25.7-33.7) 07/30/18 08:00 MCHC 33.8 g/dl (32.0-36.0) 07/30/18 08:00 RDW 13.4 % (11.6-15.6) 07/30/18 08:00 Plt Count 179 K/MM3 (134-434) 07/30/18 08:00 MPV 10.2 fl (7.5-11.1) 07/30/18 08:00 Sodium 142 mmol/L (136-145) 07/30/18 08:00 Potassium 4.1 mmol/L (3.5-5.1) 07/30/18 08:00 Chloride 107 mmol/L (98-107) 07/30/18 08:00 Carbon Dioxide 29 mmol/L (21-32) 07/30/18 08:00 Anion Gap 5 MMOL/L (8-16) L 07/30/18 08:00 BUN 14 mg/dL (7-18) 07/30/18 08:00 Creatinine 0.8 mg/dL (0.55-1.3) 07/30/18 08:00 Creat Clearance w eGFR > 60 (>60) 07/30/18 08:00 Random Glucose 98 mg/dL (74-106) 07/30/18 08:00 Calcium 8.4 mg/dL (8.5-10.1) L 07/30/18 08:00 Total Bilirubin 0.3 mg/dL (0.2-1) 07/30/18 08:00 AST 14 U/L (15-37) L 07/30/18 08:00 ALT 15 U/L (13-61) 07/30/18 08:00 Alkaline Phosphatase 81 U/L (45-117) 07/30/18 08:00 Total Protein 6.9 g/dl (6.4-8.2) 07/30/18 08:00 Albumin 3.4 g/dl (3.4-5.0) 07/30/18 08:00 Urine Color Yellow 07/29/18 22:25 Urine Appearance Clear 07/29/18 22:25 Urine pH 6.0 (5.0-8.0) 07/29/18 22:25 Ur Specific [place] 1.020 (1.010-1.035) 07/29/18 22:25 Urine Protein Negative (NEGATIVE) 07/29/18 22:25 Urine Glucose (UA) Negative (NEGATIVE) 07/29/18 22:25 Urine Ketones Negative (NEGATIVE) 07/29/18 22:25 Urine Blood 2+ (NEGATIVE) H 07/29/18 22:25 Urine Nitrite Negative (NEGATIVE) 07/29/18 22:25 Urine Bilirubin Negative (<2.0 mg/dL) 07/29/18 22:25 Urine Urobilinogen Negative mg/dL (0.2-1.0) 07/29/18 22:25 Ur Leukocyte Esterase Negative (NEGATIVE) 07/29/18 22:25 Urine WBC (Auto) 2 /hpf (3-5) 07/29/18 22:25 Urine RBC (Auto) 14 /hpf (0-3) 07/29/18 22:25 Ur Epithelial Cells Rare /HPF (FEW) 07/29/18 22:25 Calcium Oxalate Crystal Rare /hpf (NONE SEEN) 07/29/18 22:25 Urine Bacteria Rare /hpf (NONE SEEN) 07/29/18 22:25 Urine Mucus Rare 07/29/18 22:25 RPR Titer Nonreactive (NONREACTIVE) 07/30/18 08:00 lab noted Assessment: 08/01/18 14:47 withdrawal sx Plan: continue detox
[2018-08-01] MEDS: chlordiazePOXIDE HCL 10 MG CAPSULE PO SCH (22:15)
[2018-08-01] MEDS: THIAMINE HCL 100 MG TABLET (FP) PO SCH (22:15)
[2018-08-01] MEDS: MELATONIN 5 MG TABLETS PO PRN (22:15)
[2018-08-01] MEDS: CLOTRIMAZOLE 1% VAGINAL CREAM WITH APPLICATOR 45 GM TUBE VG SCH (23:00)
[2018-08-02] MEDS: chlordiazePOXIDE HCL 10 MG CAPSULE PO SCH (05:50)
[2018-08-02] MEDS: PRENATAL VITAMINS W/ FOLIC ACID TABLET (FP) PO SCH (09:26)
[2018-08-02] MEDS: IBUPROFEN 600 MG TABLET (FP) PO PRN (09:26)
[2018-08-02] MEDS: RANITIDINE HCL 150 MG TABLET (FP) PO SCH (09:26)
[2018-08-02 09:29] VITALS: BP 124/86; PULSE 117; TEMP 96.8
--- NOTE | 2018-08-02 19:10 | DS ---
[facility] Detox Discharge Summary Admission Date: 07/29/18 Discharge Date: 08/02/18 - History Present History: Alcohol Dependence, Cannabis Dependence, Cocaine Dependence Additional Comments: PATIENT GOING TO '[facility]PATIENT [facility] ([place], [place]) FOR AFTERCARE. PATIENT ADVISED TO FOLLOW-UP WITH [employer] OPERATOR DR. ZURITA ( [facility], [place], [place]) SOON POSSIBLE AFTER DISCHARGE FROM DETOX UNIT FOR GENERAL MEDICAL ASSESSMENT AND FOR HISTORY OF CONJUNCTIVITIS DIAGNOSED WHILE PATIENT WAS ADMITTED FOR DETOX. PATIENT VERBALIZED UNDERSTANDING OF RECOMMENDATION. PATIENT WAS DISCHARGED FROM DETOX UNIT IN STABLE MEDICAL CONDITION. Pertinent Past History: GAlfredo., Conjunctivitis. - Physical Exam Results Vital Signs: Vital Signs Temperature 96.8 F L 08/02/18 09:29 Pulse Rate 117 H 08/02/18 09:29 Respiratory Rate 20 08/02/18 09:29 Blood Pressure 124/86 08/02/18 09:29 O2 Sat by Pulse Oximetry (%) Pertinent Admission Physical Exam Findings: WITHDRAWAL SYMPTOMS. Laboratory Tests 07/29/18 07/30/18 07/30/18 22:25 08:00 08:00 WBC 5.3 RBC 4.31 Hgb 14.0 Hct 41.3 MCV 95.9 MCH 32.5 MCHC 33.8 RDW 13.4 Plt Count 179 MPV 10.2 Sodium 142 Potassium 4.1 Chloride 107 Carbon Dioxide 29 Anion Gap 5 L BUN 14 Creatinine 0.8 Creat Clearance w eGFR > 60 Random Glucose 98 Calcium 8.4 L Total Bilirubin 0.3 AST 14 L ALT 15 Alkaline Phosphatase 81 Total Protein 6.9 Albumin 3.4 Urine Color Yellow Urine Appearance Clear Urine pH 6.0 Ur Specific [place] 1.020 Urine Protein Negative Urine Glucose (UA) Negative Urine Ketones Negative Urine Blood 2+ H Urine Nitrite Negative Urine Bilirubin Negative Urine Urobilinogen Negative Ur Leukocyte Esterase Negative Urine WBC (Auto) 2 Urine RBC (Auto) 14 Ur Epithelial Cells Rare Calcium Oxalate Crystal Rare Urine Bacteria Rare Urine Mucus Rare RPR Titer 07/30/18 08:00 WBC RBC Hgb Hct MCV MCH MCHC RDW Plt Count MPV Sodium Potassium Chloride Carbon Dioxide Anion Gap BUN Creatinine Creat Clearance w eGFR Random Glucose Calcium Total Bilirubin AST ALT Alkaline Phosphatase Total Protein Albumin Urine Color Urine Appearance Urine pH Ur Specific [place] Urine Protein Urine Glucose (UA) Urine Ketones Urine Blood Urine Nitrite Urine Bilirubin Urine Urobilinogen Ur Leukocyte Esterase Urine WBC (Auto) Urine RBC (Auto) Ur Epithelial Cells Calcium Oxalate Crystal Urine Bacteria Urine Mucus RPR Titer Nonreactive LABS NOTED. - Treatment Hospital Course: Detox Protocol Followed, Detoxed Safely, Responded well, Discharged Condition Good Patient has Accepted a Rehab Referral to: PT. RIGGS TO [facility] ([place], [place] - Medication Discharge Medications: Ambulatory Orders Ofloxacin 0.3% Ophth Soln [Ocuflox -] 1 drop OU QID 07/30/18 - Diagnosis (1) Alcohol dependence with uncomplicated withdrawal Status: Acute (2) Cocaine dependence Status: Acute Qualifiers: Substance use status: uncomplicated Qualified Code(s): F14.20 - Cocaine dependence, uncomplicated (3) Marijuana dependence Status: Acute (4) GERD (gastroesophageal reflux disease) Status: Chronic Qualifiers: Esophagitis presence: without esophagitis Qualified Code(s): K21.9 - Gastro -esophageal reflux disease without esophagitis - AMA Did Patient Leave Against Medical Advice: No
== END 2018-08-02 09:50 | disposition home or self-care (01) | DRG 774 ==
LOC: YASAS 13:15 → Y3N 17:45
PROVIDERS: ADMIT Surgery; ATTEND Surgery
PROC: HZ2ZZZZ Detoxification Services for Substance Abuse Treatment (ICD-10-PCS; principal; 2018-07-29)
DX: F10.230 Alcohol dependence with withdrawal, uncomplicated (principal); F14.20 Cocaine dependence, uncomplicated; F12.20 Cannabis dependence, uncomplicated; K21.9 Gastro-esophageal reflux disease without esophagitis; H10.33 Unspecified acute conjunctivitis, bilateral; Z86.19 Personal history of other infectious and parasitic diseases
CPT/HCPCS: 36415; 71046-TC-FY; 80053; 81003; 81015; 85027; 86593; 93005; 93010

== ENCOUNTER 2018-09-02 13:56 | Inpatient (IN) | payer OTHER ==
[2018-09-02 15:58] VITALS: BMI 26.8
--- NOTE | 2018-09-02 20:59 | HP ---
CIWA Score Nausea/Vomitin-No Nausea/No Vomiting Muscle Tremors: 2 Anxiety: 3 Agitation: 0-Normal Activity Paroxysmal Sweats: 3 Orientation: 0-Oriented Tacttile Disturbances: 1-Very Mild Itch/Numbness (fingertips b/t) Auditory Disturbances: 0-None Visual Disturbances: 2-Mild Sensitivity Headache: 2-Mild CIWA-Ar Total Score: 13 - Admission Criteria OAS Guidelines: Admission for Medically Managed Detox: Requires at least one of the followin. CIWA greater than 12 2. Seizures within the past 24 hours 3. Delirium tremens within the past 24 hours 4. Hallucinations within the past 24 hours 5. Acute intervention needed for co occurring medical disorder 6. Acute intervention needed for co occurring psychiatric disorder 7. Severe withdrawal that cannot be handled at a lower level of care (continued vomiting, continued diarrhea, abnormal vital signs) requiring intravenous medication and/or fluids 8. Patient presents the following: CIWA greater than 12 Admission Criteria Met: Admission criteria met Admission ROS [facility] [place] Chief Complaint: alcohol withdrawal symptoms Allergies/Adverse Reactions: Allergies Allergy/AdvReac Type Severity Reaction Status Date / Time No Known Allergies Allergy Verified 09/02/18 20:50 History of Present Illness: 62 yo female with hx of Alcohol, marijuana, crack cocaine dependence is here seeking detox d/t withdrawal sx , self referred. Utox positive for THC, DUTCH, BZO , denies bzo use. Patient plans to attend outpatient program once completing detox. Last detox [facility] 07/29/18 -08/02/18, reports relapsed. PMHX: chronic rhinitis, GERD. Denies any psychiatric problems. Denies hx of seizures, reports last week suffered blackouts, was unaware of surroundings and lost her money. Longest period of sobriety three years. Denies any legal problems at this time. Exam Limitations: No Limitations - Ebola screening Have you traveled outside of the country in the last 21 days: No Have you had contact with anyone from an Ebola affected area: No Have you been sick,other than usual withdrawal symptoms: No Do you have a fever: No - Review of Systems Constitutional: Chills (sweats), Loss of Appetite, Changes in sleep, Unintentional Wgt. Loss EENT: reports: Cataracts (bilateral) Respiratory: reports: No Symptoms reported Cardiac: reports: No Symptoms Reported GI: reports: Diarrhea, Poor Appetite, Poor Fluid Intake, Indigestion, Abdominal cramping : reports: No Symptoms Reported Musculoskeletal: reports: Joint Pain Integumentary: reports: No Symptoms Reported Neuro: reports: Headache Endocrine: reports: Increased Thirst Hematology: reports: No Symptoms Reported Psychiatric: reports: Orientated x3, Depressed (feeling upset with myself) Other Systems: Reviewed and Negative Patient History - Patient Medical History Hx Anemia: No Hx Asthma: No Hx Chronic Obstructive Pulmonary Disease (COPD): No Hx Cancer: No Hx Cardiac Disorders: No Hx Congestive Heart Failure: No Hx Hypertension: No Hx Hypercholesterolemia: No Hx Pacemaker: No HX Cerebrovascular Accident: No Hx Seizures: No Hx Dementia: No Hx Diabetes: No Hx Gastrointestinal Disorders: No Hx Liver Disease: No Hx Genitourinary Disorders: No Hx Sexually Transmitted Disorders: No Hx Renal Disease (ESRD): No Hx Thyroid Disease: No Hx Human Immunodeficiency Virus (HIV): No Hx Hepatitis C: No Hx Depression: Yes Hx Suicide Attempt: No Hx Bipolar Disorder: No Hx Schizophrenia: No - Patient Surgical History Past Surgical History: Yes Hx Neurologic Surgery: No Hx Cataract Extraction: No Hx Cardiac Surgery: No Hx Lung Surgery: No Hx Breast Biopsy: No Hx Abdominal Surgery: No Hx Appendectomy: No Hx Genitourinary Surgery: No Hx Section: No Hx Orthopedic Surgery: No Hx Hysterectomy: No Other Surgical History: Removal of polyp in 2014 Anesthesia Reaction: No - PPD History Previous Implant?: No (Neg Chest X-ray Jul 2017) Documented Results: Negative w/proof PPD to be Administered?: No - Smoking Cessation Smoking history: Former smoker Have you smoked in the past 12 months: No Hx Chewing Tobacco Use: No Initiated information on smoking cessation: No 'Breaking Loose' booklet given: 09/02/18 - Substance & Tx. History Hx Alcohol Use: Yes Hx Substance Use: Yes Substance Use Type: Alcohol, Cocaine, Marijuana Hx Substance Use Treatment: Yes ([facility] detox 07/29/18 -08/02/18) - Substances Abused Alcohol Route: Oral Frequency: 3-6 times per week Amount used: 2 pints Age of first use: 14 Date of Last Use: 09/02/18 Cocaine Route: Smoking Frequency: 3-6 times per week Amount used: $60 Age of first use: 20 Date of Last Use: 09/02/18 Family Disease History - Family Disease History Family Disease History: [place]: Mother (lung) Admission Physical Exam [facility] - Vital Signs Vital Signs: Vital Signs - 24 hr 09/02/18 15:56 Temperature 96.8 F L Pulse Rate 63 Respiratory 18 Rate Blood Pressure 160/95 - Physical General Appearance: Yes: Appropriately Dressed, Disheveled, Mild Distress, Sweating, Anxious HEENTM: Yes: EOMI, Hearing grossly Normal, Normal ENT Inspection, Normocephalic , Normal Voice, SUSAN, Pharynx Normal, Tm's normal Respiratory: Yes: Chest Non-Tender, Lungs Clear, Normal Breath Sounds, No Respiratory Distress, No Accessory Muscle Use Neck: Yes: No masses,lesions,Nodules, Trachea in good position Breast: Yes: Breast Exam Deferred Cardiology: Yes: Regular Rhythm, Regular Rate Abdominal: Yes: Normal Bowel Sounds, Non Tender, Flat, Soft Genitourinary: Yes: Within Normal Limits Back: Yes: Normal Inspection Musculoskeletal: Yes: full range of Motion, Gait Steady, Pelvis Stable Extremities: Yes: Normal Capillary Refill, Normal Inspection, Normal Range of Motion, Non-Tender Neurological: Yes: it help desk technician II-XII NML intact, Fully Oriented, Alert, Motor Strength 5/5, Depressed Affect Integumentary: Yes: Normal Color, Warm, Diaphoresis Lymphatic: Yes: Within Normal Limits - Addiitonal Findings: Patient educated on the importance to follow up with PCP after completing detox re: elevated BP on admission. Patient verbalizes understanding. - Diagnostic (1) Elevated blood pressure reading in office without diagnosis of hypertension Current Visit: Yes Status: Acute (2) Alcohol dependence with uncomplicated withdrawal Current Visit: Yes Status: Acute (3) Cocaine dependence Current Visit: Yes Status: Acute Qualifiers: Substance use status: uncomplicated Qualified Code(s): F14.20 - Cocaine dependence, uncomplicated (4) Marijuana dependence Current Visit: Yes Status: Acute (5) GERD (gastroesophageal reflux disease) Current Visit: Yes Status: Chronic Qualifiers: Esophagitis presence: without esophagitis Qualified Code(s): K21.9 - Gastro -esophageal reflux disease without esophagitis Cleared for Admission [facility] - Detox or Rehab [facility] Level of Care: Medically Managed Detox Regimen/Protocol: Librium [facility] Breath Alcohol Content Breath Alcohol Content: 0 Urine Pregancy Test - Result Urine Test Results: Negative - NO line present Urine Drug Screen - Results Drug Screen Negative: No Urine Drug Screen Results: THC-Marijuana, DUTCH-Cocaine, BZO-Benzodiazepines Inpatient Rehab Admission - Rehab Decision to Admit Inpatient rehab admission?: No
[2018-09-02] MEDS ORDERED: chlordiazePOXIDE HCL 25 MG CAPSULE PO PRN (21:07)
[2018-09-02] MEDS ORDERED: MAG HYDROX/AL HYDROX/SIMETH 30 ML UNIT-DOSE CUP PO PRN (21:07)
[2018-09-02] MEDS ORDERED: MAGNESIUM HYDROX 2400MG/30ML ORAL SUSPENSION 30 ML CUP PO PRN (21:07)
[2018-09-02] MEDS ORDERED: METHOCARBAMOL 500 MG TABLET PO PRN (21:07)
[2018-09-02] MEDS ORDERED: ACETAMINOPHEN 325 MG TABLET (FP) PO PRN ×2 (21:07)
[2018-09-02] MEDS ORDERED: BISMUTH SUBSALICYLATE 524 MG/30 ML UD PO PRN (21:07)
[2018-09-02] MEDS ORDERED: MENTHOL/PHENOL 1 EACH UD MM PRN (21:07)
[2018-09-02] MEDS ORDERED: hydrOXYzine PAMOATE 25 MG CAPSULE (FP) PO PRN (21:07)
[2018-09-02] MEDS ORDERED: MAGNESIUM CITRATE 300 ML BOTTLE PO PRN (21:07)
[2018-09-02] MEDS ORDERED: ONDANSETRON *ODT* 4 MG TABLET SL PRN (21:07)
[2018-09-02] MEDS ORDERED: IBUPROFEN 400 MG TABLET (FP) PO PRN (21:07)
[2018-09-02] MEDS: THIAMINE HCL 100 MG TABLET (FP) PO SCH (22:31)
[2018-09-02] MEDS: chlordiazePOXIDE HCL 25 MG CAPSULE PO SCH (22:33)
[2018-09-02] MEDS: MELATONIN 5 MG TABLETS PO PRN (22:34)
[2018-09-03 05:14] LABS: EPI CELLS 5.9 /HPF (0-5); URINE APPEARANCE CLEAR; URINE BACTERIA 432.558 /hpf (NEGATIVE); URINE BILIRUBIN NEGATIVE (NEGATIVE); URINE CASTS 2 /hpf (0-8); URINE COLOR YELLOW; URINE GLUCOSE (UA) NEGATIVE (NEGATIVE); URINE KETONE NEGATIVE (NEGATIVE); URINE LEUK ESTERASE TRACE (NEGATIVE); URINE NITRITE NEGATIVE (NEGATIVE); URINE PROTEIN NEGATIVE (NEGATIVE); URINE WBC 6 /hpf (0-5)
[2018-09-03 05:32] LABS: URINE RBC 15.6 /hpf (0-4)
[2018-09-03] MEDS: chlordiazePOXIDE HCL 25 MG CAPSULE PO SCH ×4 (05:48→22:21)
[2018-09-03] MEDS ORDERED: cloNIDine HCL 0.1 MG TABLET PO PRN (09:56)
--- NOTE | 2018-09-03 09:56 | PN ---
S CIWA - CIWA Score Nausea/Vomitin-Mild Nausea/No Vomiting Muscle Tremors: 3 Anxiety: 2 Agitation: 1-Slight > Activity Paroxysmal Sweats: 1-Minimal Palms Moist Orientation: 1-Uncertain about Date Tacttile Disturbances: 0-None Auditory Disturbances: 0-None Visual Disturbances: 0-None Headache: 1-Very Mild CIWA-Ar Total Score: 10 BHS Progress Note (SOAP) Subjective: feeling better with the eye drops denies history of hypertension begin clonidin 0.1 mg prn Objective: 09/03/18 10:00 Vital Signs Temperature 97.1 F L 09/03/18 09:33 Pulse Rate 72 09/03/18 09:33 Respiratory Rate 18 09/03/18 09:33 Blood Pressure 153/90 09/03/18 09:33 O2 Sat by Pulse Oximetry (%) Laboratory Last Values Urine Color Yellow 09/03/18 00:05 Urine Appearance Clear 09/03/18 00:05 Urine pH 8.0 (5.0-8.0) D 09/03/18 00:05 Ur Specific [place] 1.019 (1.010-1.035) 09/03/18 00:05 Urine Protein Negative (NEGATIVE) 09/03/18 00:05 Urine Glucose (UA) Negative (NEGATIVE) 09/03/18 00:05 Urine Ketones Negative (NEGATIVE) 09/03/18 00:05 Urine Blood Negative (NEGATIVE) 09/03/18 00:05 Urine Nitrite Negative (NEGATIVE) 09/03/18 00:05 Urine Bilirubin Negative (NEGATIVE) 09/03/18 00:05 Urine Urobilinogen 1.0 mg/dL (0.2-1.0) 09/03/18 00:05 Ur Leukocyte Esterase Trace (NEGATIVE) 09/03/18 00:05 Urine WBC (Auto) 6 /hpf (0-5) 09/03/18 00:05 Urine RBC (Auto) 15.6 /hpf (0-4) 09/03/18 00:05 Urine Casts (Auto) 2 /hpf (0-8) 09/03/18 00:05 U Epithel Cells (Auto) 5.9 /HPF (0-5) 09/03/18 00:05 Urine Bacteria (Auto) 432.558 /hpf (NEGATIVE) 09/03/18 00:05 09/03/18 10:01 lab pending Assessment: 09/03/18 10:05 alcohol withdrawal sx Plan: continue detox
[2018-09-03] MEDS: PRENATAL VITAMINS W/ FOLIC ACID TABLET (FP) PO SCH (10:01)
[2018-09-03] MEDS: TETRAHYDROZOLINE HCL EYE DROPS OU PRN ×2 (10:01→17:33)
[2018-09-03 12:15] LABS: HEMATOCRIT 41.4 % (32.4-45.2); HEMOGLOBIN 14.2 GM/dL (10.7-15.3); MCH 33.1 pg (25.7-33.7); MCHC 34.2 g/dl (32.0-36.0); MEAN CELL VOLUME 96.6 fl (80-96); MEAN PLT VOLUME 10.4 fl (7.5-11.1); PLATELET COUNT 177 K/MM3 (134-434); RBC 4.29 M/mm3 (3.60-5.2); RDW 13.4 % (11.6-15.6); WHITE BLOOD COUNT 4.8 K/mm3 (4.0-10.0)
[2018-09-03 12:27] LABS: ALBUMIN 3.3 g/dl (3.4-5.0); ALK PHOS 79 U/L (45-117); ANION GAP 9 MMOL/L (8-16); BILIRUBIN,TOTAL 0.3 mg/dL (0.2-1); BLOOD UREA NITROGEN 12 mg/dL (7-18); CALCIUM 8.3 mg/dL (8.5-10.1); CHLORIDE 108 mmol/L (98-107); CO2 27 mmol/L (21-32); CREATININE 0.8 mg/dL (0.55-1.3); GLUCOSE,RANDOM 82 mg/dL (74-106); POTASSIUM 3.6 mmol/L (3.5-5.1); SGOT/AST 16 U/L (15-37); SGPT/ALT 17 U/L (13-61); SODIUM 143 mmol/L (136-145); TOT PROT 6.4 g/dl (6.4-8.2)
[2018-09-03] MEDS: THIAMINE HCL 100 MG TABLET (FP) PO SCH (22:21)
[2018-09-03] MEDS: MELATONIN 5 MG TABLETS PO PRN (22:22)
[2018-09-04] MEDS: chlordiazePOXIDE HCL 25 MG CAPSULE PO SCH ×3 (05:21→18:00)
[2018-09-04] MEDS: TETRAHYDROZOLINE HCL EYE DROPS OU PRN ×3 (05:22→18:05)
[2018-09-04] MEDS: PRENATAL VITAMINS W/ FOLIC ACID TABLET (FP) PO SCH (10:13)
--- NOTE | 2018-09-04 12:24 | PN ---
S CIWA - CIWA Score Nausea/Vomitin-No Nausea/No Vomiting Muscle Tremors: None Anxiety: 0-No Anxiety, at Ease Agitation: 0-Normal Activity Paroxysmal Sweats: No Perspiration Orientation: 0-Oriented Tacttile Disturbances: 0-None Auditory Disturbances: 0-None Visual Disturbances: 0-None Headache: 0-None Present CIWA-Ar Total Score: 0 BHS Progress Note (SOAP) Subjective: pt states she is feeling fine today- has no complaints O: Vital Signs - 24 hr 09/03/18 09/03/18 09/03/18 13:27 17:26 21:44 Temperature 97.0 F L 97.3 F L 96.4 F L Pulse Rate 70 68 67 Respiratory 18 18 16 Rate Blood Pressure 137/85 132/77 141/91 09/04/18 09/04/18 09/04/18 00:30 03:30 06:54 Temperature 97.0 F L Pulse Rate 62 Respiratory 18 18 18 Rate Blood Pressure 114/60 09/04/18 09:27 Temperature 96.4 F L Pulse Rate 83 Respiratory 18 Rate Blood Pressure 133/88 Laboratory Tests 09/03/18 09/03/18 09/03/18 00:05 07:30 07:30 WBC 4.8 RBC 4.29 Hgb 14.2 Hct 41.4 MCV 96.6 H MCH 33.1 MCHC 34.2 RDW 13.4 Plt Count 177 MPV 10.4 Sodium 143 Potassium 3.6 Chloride 108 H Carbon Dioxide 27 Anion Gap 9 BUN 12 Creatinine 0.8 Creat Clearance w eGFR 72.92 Random Glucose 82 Calcium 8.3 L Total Bilirubin 0.3 AST 16 ALT 17 Alkaline Phosphatase 79 Total Protein 6.4 Albumin 3.3 L Urine Color Yellow Urine Appearance Clear Urine pH 8.0 D Ur Specific [place] 1.019 Urine Protein Negative Urine Glucose (UA) Negative Urine Ketones Negative Urine Blood Negative Urine Nitrite Negative Urine Bilirubin Negative Urine Urobilinogen 1.0 Ur Leukocyte Esterase Trace Urine WBC (Auto) 6 Urine RBC (Auto) 15.6 Urine Casts (Auto) 2 U Epithel Cells (Auto) 5.9 Urine Bacteria (Auto) 432.558 RPR Titer 09/03/18 07:30 WBC RBC Hgb Hct MCV MCH MCHC RDW Plt Count MPV Sodium Potassium Chloride Carbon Dioxide Anion Gap BUN Creatinine Creat Clearance w eGFR Random Glucose Calcium Total Bilirubin AST ALT Alkaline Phosphatase Total Protein Albumin Urine Color Urine Appearance Urine pH Ur Specific [place] Urine Protein Urine Glucose (UA) Urine Ketones Urine Blood Urine Nitrite Urine Bilirubin Urine Urobilinogen Ur Leukocyte Esterase Urine WBC (Auto) Urine RBC (Auto) Urine Casts (Auto) U Epithel Cells (Auto) Urine Bacteria (Auto) RPR Titer Nonreactive a/p: continue alcohol detox protocol pt doing well to d/w counselor re assisted rehab
[2018-09-04] MEDS: THIAMINE HCL 100 MG TABLET (FP) PO SCH (22:45)
[2018-09-04] MEDS: chlordiazePOXIDE HCL 10 MG CAPSULE PO SCH (22:45)
[2018-09-04] MEDS: MELATONIN 5 MG TABLETS PO PRN (22:46)
[2018-09-04] MEDS ORDERED: chlordiazePOXIDE HCL 10 MG CAPSULE PO PRN (23:00)
[2018-09-05] MEDS: chlordiazePOXIDE HCL 10 MG CAPSULE PO SCH ×2 (05:26→10:17)
[2018-09-05] MEDS: TETRAHYDROZOLINE HCL EYE DROPS OU PRN (05:27)
[2018-09-05 09:21] VITALS: BP 134/87; PULSE 75; TEMP 98.4
--- NOTE | 2018-09-05 09:56 | DS ---
[facility] Detox Discharge Summary Admission Date: 09/02/18 Discharge Date: 09/05/18 - History Present History: Alcohol Dependence Additional Comments: 62 years old female admitted on 09/02/18 for alcohol withdrawal stabilization completed detox regimen aftercare [facility] - Physical Exam Results Vital Signs: Vital Signs Temperature 98.4 F 09/05/18 09:20 Pulse Rate 75 09/05/18 09:20 Respiratory Rate 18 09/05/18 09:20 Blood Pressure 134/87 09/05/18 09:20 O2 Sat by Pulse Oximetry (%) Pertinent Admission Physical Exam Findings: alcohol withdrawal sx Laboratory Last Values WBC 4.8 K/mm3 (4.0-10.0) 09/03/18 07:30 RBC 4.29 M/mm3 (3.60-5.2) 09/03/18 07:30 Hgb 14.2 GM/dL (10.7-15.3) 09/03/18 07:30 Hct 41.4 % (32.4-45.2) 09/03/18 07:30 MCV 96.6 fl (80-96) H 09/03/18 07:30 MCH 33.1 pg (25.7-33.7) 09/03/18 07:30 MCHC 34.2 g/dl (32.0-36.0) 09/03/18 07:30 RDW 13.4 % (11.6-15.6) 09/03/18 07:30 Plt Count 177 K/MM3 (134-434) 09/03/18 07:30 MPV 10.4 fl (7.5-11.1) 09/03/18 07:30 Sodium 143 mmol/L (136-145) 09/03/18 07:30 Potassium 3.6 mmol/L (3.5-5.1) 09/03/18 07:30 Chloride 108 mmol/L (98-107) H 09/03/18 07:30 Carbon Dioxide 27 mmol/L (21-32) 09/03/18 07:30 Anion Gap 9 MMOL/L (8-16) 09/03/18 07:30 BUN 12 mg/dL (7-18) 09/03/18 07:30 Creatinine 0.8 mg/dL (0.55-1.3) 09/03/18 07:30 Creat Clearance w eGFR 72.92 (>60) 09/03/18 07:30 Random Glucose 82 mg/dL (74-106) 09/03/18 07:30 Calcium 8.3 mg/dL (8.5-10.1) L 09/03/18 07:30 Total Bilirubin 0.3 mg/dL (0.2-1) 09/03/18 07:30 AST 16 U/L (15-37) 09/03/18 07:30 ALT 17 U/L (13-61) 09/03/18 07:30 Alkaline Phosphatase 79 U/L (45-117) 09/03/18 07:30 Total Protein 6.4 g/dl (6.4-8.2) 09/03/18 07:30 Albumin 3.3 g/dl (3.4-5.0) L 09/03/18 07:30 Urine Color Yellow 09/03/18 00:05 Urine Appearance Clear 09/03/18 00:05 Urine pH 8.0 (5.0-8.0) D 09/03/18 00:05 Ur Specific [place] 1.019 (1.010-1.035) 09/03/18 00:05 Urine Protein Negative (NEGATIVE) 09/03/18 00:05 Urine Glucose (UA) Negative (NEGATIVE) 09/03/18 00:05 Urine Ketones Negative (NEGATIVE) 09/03/18 00:05 Urine Blood Negative (NEGATIVE) 09/03/18 00:05 Urine Nitrite Negative (NEGATIVE) 09/03/18 00:05 Urine Bilirubin Negative (NEGATIVE) 09/03/18 00:05 Urine Urobilinogen 1.0 mg/dL (0.2-1.0) 09/03/18 00:05 Ur Leukocyte Esterase Trace (NEGATIVE) 09/03/18 00:05 Urine WBC (Auto) 6 /hpf (0-5) 09/03/18 00:05 Urine RBC (Auto) 15.6 /hpf (0-4) 09/03/18 00:05 Urine Casts (Auto) 2 /hpf (0-8) 09/03/18 00:05 U Epithel Cells (Auto) 5.9 /HPF (0-5) 09/03/18 00:05 Urine Bacteria (Auto) 432.558 /hpf (NEGATIVE) 09/03/18 00:05 RPR Titer Nonreactive (NONREACTIVE) 09/03/18 07:30 lab noted most likely contamination with trace Leukocyte and negative nitrite patient is asymptomatic to uti temp 97 ate breakfast and slep well last night good personal hygiene independent ADL's strong recommend the patient follow up with primary care provider at [facility] bring in lab results and list of medication to follow up appointment - Treatment Hospital Course: Detox Protocol Followed, Detoxed Safely, Responded well, Discharged Condition Good, Rehab Referral Accepted Patient has Accepted a Rehab Referral to: [facility] - Medication Discharge Medications: Ambulatory Orders NK [No Known Home Medication] 09/02/18 - Diagnosis (1) Alcohol dependence with uncomplicated withdrawal Current Visit: Yes Status: Acute (2) GERD (gastroesophageal reflux disease) Current Visit: Yes Status: Chronic Qualifiers: Esophagitis presence: without esophagitis Qualified Code(s): K21.9 - Gastro -esophageal reflux disease without esophagitis - AMA Did Patient Leave Against Medical Advice: No
[2018-09-05] MEDS: PRENATAL VITAMINS W/ FOLIC ACID TABLET (FP) PO SCH (10:17)
[2018-09-05] MEDS ORDERED: chlordiazePOXIDE HCL 10 MG CAPSULE PO SCH (23:00)
== END 2018-09-05 10:21 | disposition home or self-care (01) | DRG 774 ==
LOC: YASAS 13:56 → Y3N 21:20
PROVIDERS: ADMIT Surgery; ATTEND Surgery
PROC: HZ2ZZZZ Detoxification Services for Substance Abuse Treatment (ICD-10-PCS; principal; 2018-09-02)
DX: F10.230 Alcohol dependence with withdrawal, uncomplicated (principal); F14.20 Cocaine dependence, uncomplicated; F12.20 Cannabis dependence, uncomplicated; K21.9 Gastro-esophageal reflux disease without esophagitis; R03.0 Elevated blood-pressure reading, without diagnosis of hypertension; Z87.891 Personal history of nicotine dependence
CPT/HCPCS: 36415; 80053; 81003; 85027; 86593; J0735